=== PATIENT | male | born 1960 | race Caucasian/White ===

== ENCOUNTER 2016-12-30 19:23 | Emergency (ER) | payer OTHER ==
[2016-12-30 19:40] VITALS: BP 145/95
[2016-12-30] MEDS ORDERED: Lidocaine 1% 50 ML MDV INJECT ONE (19:40)
[2016-12-30] MEDS ORDERED: Cephalexin 500 MG Cap PO ONE (19:42)
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
== END 2016-12-30 21:42 | disposition home or self-care (01) ==
LOC: JD.ED 19:23
DX: S81.812A Laceration without foreign body, left lower leg, initial encounter (principal); W45.8XXA Other foreign body or object entering through skin, initial encounter; Z88.7 Allergy status to serum and vaccine
CPT/HCPCS: 12034; 36415; 80053; 85025; 99284; A9270; 99283-25